=== PATIENT | female | born 1990 | race African-American/Black ===

== ENCOUNTER 2017-11-07 13:41 | Emergency (ER) | payer MEDICAID ==
[~2017-11-07] VITALS: Ht 167.6 cm; Wt 86.4 kg
[2017-11-07] MEDS ORDERED: IBUPROFEN 600MG TABLET PO ONE ×2 (16:15→16:45)
[2017-11-07 17:24] VITALS: BP 114/84
== END 2017-11-07 17:25 | disposition home or self-care (01) ==
LOC: ER 15:35
DX: S89.92XA Unspecified injury of left lower leg, initial encounter (principal); Z88.1 Allergy status to other antibiotic agents; X58.XXXA Exposure to other specified factors, initial encounter; Y93.89 Activity, other specified; Y92.89 Other specified places as the place of occurrence of the external cause; Y99.8 Other external cause status
CPT/HCPCS: 99283

== ENCOUNTER 2018-09-07 11:22 | Emergency (ER) | payer MEDICAID ==
[~2018-09-07] VITALS: Ht 170.2 cm; Wt 91.0 kg
[2018-09-07 11:44] VITALS: BP 123/83
== END 2018-09-07 12:47 | disposition home or self-care (01) ==
LOC: ER 11:22
DX: J02.9 Acute pharyngitis, unspecified (principal); H92.03 Otalgia, bilateral; Z88.1 Allergy status to other antibiotic agents
CPT/HCPCS: 87430; 99283